=== PATIENT | male | born 1950 | race Caucasian/White ===

== ENCOUNTER 2022-10-23 18:59 | Inpatient (IN) | payer OTHER ==
[~2022-10-23] VITALS: Ht 162.6 cm; Wt 77.1 kg
[2022-10-23 19:03] VITALS: BP 120/99
--- NOTE | 2022-10-23 19:05 | NUR ---
PT TO BED #2
--- NOTE | 2022-10-23 19:28 | NUR ---
Dr. Reyes examining patient.
[2022-10-23] MEDS ORDERED: cefTRIAXone 1,000 MG in DEXT 5% MINI-BAG PLUS 50 ML IV ONE (19:35)
--- NOTE | 2022-10-23 19:45 | NUR ---
Patient resting in bed, A/Ox4, chest rise and fall symmetrical, no c/o pain or s/s of distress, seizure pads in place.
[2022-10-23] MEDS ORDERED: AMLO10TA PO (19:57)
[2022-10-23] MEDS ORDERED: DONE10TA10 PO (19:57)
[2022-10-23] MEDS ORDERED: LOSA25TA32 PO (19:57)
[2022-10-23] MEDS ORDERED: PENT400T67 PO (19:59)
[2022-10-23] MEDS ORDERED: GABA100C PO (19:59)
[2022-10-23] MEDS ORDERED: [UNRECOGNIZED DRUG - CODE] PO (19:59)
[2022-10-23] MEDS ORDERED: cefTRIAXone 1,000 MG VIAL ONE (20:26)
--- NOTE | 2022-10-23 20:34 | NUR ---
X-Ray at bedside.
[2022-10-23 20:38] LABS: BASOPHILS % (AUTO) 0.5 % (0.0-2.0); EOSINOPHILS # (AUTO) 0.1 K/uL (0-0.4); EOSINOPHILS % (AUTO) 1.8 % (0.0-4.0); HEMATOCRIT 40.8 % (36-52); HEMOGLOBIN 13.6 g/dL (12.0-18.0); LYMPHOCYTES # (AUTO) 1.7 K/uL (2.0-11.5); LYMPHOCYTES % (AUTO) 22.1 % (20.5-51.1); MEAN CORPUSCULAR HEMOGLOBIN 27 pg (27-31); MEAN CORPUSCULAR HGB CONC 33 g/dL (33-37); MEAN CORPUSCULAR VOLUME 81.6 fL (80-94); MONOCYTES # (AUTO) 0.8 K/uL (0.8-1.0); NEUTROPHILS % (AUTO) 65.6 % (42.2-75.2); PLATELET COUNT (AUTO) 294 K/uL (140-450); RED BLOOD CELL COUNT(AUTO) 5.01 MIL/uL (4.20-6.10); RED CELL DISTRIBUTION WIDTH 15.2 % (11.6-13.7); WHITE BLOOD COUNT (AUTO) 7.7 K/uL (4.8-10.8)
[2022-10-23] MEDS ORDERED: diphenhydrAMINE 50 MG/ML VIAL IVP ONE (20:55)
[2022-10-23 21:00] LABS: APPEARANCE,URINE CLEAR (CLEAR); BILIRUBIN,URINE NEGATIVE (NEGATIVE); BLOOD, URINE TRACE-I (NEGATIVE); COLOR,URINE YELLOW (YELLOW); LEUKOCYTE ESTERASE ,URINE NEGATIVE (NEGATIVE); NITRITE, URINE NEGATIVE (NEGATIVE); UGLUCOSE NEGATIVE (NEGATIVE)
[2022-10-23 21:06] LABS: ALBUMIN 3.7 g/dL (3.4-5.0); ANION GAP 11.8 (8-16); ASPARTATE AMINOTRANSFERASE 20 U/L (15-37); CARBON DIOXIDE 30.4 mmol/L (21-32); CHLORIDE 102 mmol/L (98-107); CREATININE 0.7 mg/dL (0.6-1.3); GLUCOSE 104 mg/dL (74-106); POTASSIUM 4.2 mmol/L (3.5-5.1); SODIUM SERUM 140 mmol/L (136-145); TOTAL BILIRUBIN 0.6 mg/dL (0.0-1.0); UREA NITROGEN, BLOOD 16 mg/dL (7-18)
[2022-10-23 21:09] LABS: RBC,URINE 0-5 /HPF (0-5); WBC,URINE NONE SEEN /HPF (0-5)
[2022-10-23] MEDS ORDERED: ACETAMINOPHEN 325 MG TAB PO PRN (21:25)
[2022-10-23] MEDS ORDERED: ONDANSETRON 4 MG/2 ML VIAL IVP PRN (21:25)
[2022-10-23] MEDS ORDERED: HYDROcodone/APAP 5/325 MG 1 TAB TAB PO PRN (21:25)
--- NOTE | 2022-10-23 21:40 | NUR ---
Patient resting in bed, A/Ox4, chest rise and fall symmetrical, no c/o pain or s/s of distress, seizure pads in place.
--- NOTE | 2022-10-23 22:06 | NUR ---
Patient will be admitted to care of telemetry nurse Malinda. Admited to telemetry. Will go to room 107A. Belongings list completed. Report to telemetry nurse Malinda. Telemetry nurse Malinda verbalized understanding of report, no further questions from telemetry nurse Malinda. Telemetry nurse Malinda verbally informed salazar Calvillo requests patient call admitting doctor for a medication to keep patient calm so salazar Calvillo can perform head CT. Telemetry nurse Malinda verbalized understanding and stated she "will call doctor for medication to calm patient down." cost recovery technician David verbally informed that patient is going to Tele rm 107A and telemetry nurse Petty stated she "will call doctor for medication to calm patient down." Salazar Calvillo verbalized understanding, no further questions.
--- NOTE | 2022-10-23 22:30 | NUR ---
PT WAS ADMITTED TO [facility] FROM ER [facility] WITH DIAGNOSIS SUBACUTE STROKE. PT IS CONFUSED ACCOMPANIED WITH HER . PT IS ON ROOM AIR AND ON REGULAR DIET. PT HAS IV ON LEFT AC GAUGE 20 SALINE LOCK. PT SKIN IS INTACT. PT AND HIS WAS ORIENTED TO HOSPITAL/ROOM, BED BUTTONS AND CALL LIGHT. ALL SAFETY MEASURES IMPLEMENTED. BED IN LOW POSITION, BED WHEELS ON LOCK AND CALL LIGHT WITHIN REACH.
--- NOTE | 2022-10-23 22:39 | NUR ---
NOTIFIED DR. BLAIR REGARDING PT NEEDS TO GO TO CT SCAN BUT PT IS AGITATED. PT WAS GIVEN BENADRYL BUT IT WAS NOT EFFECTIVE TO THE PT. DR. BLAIR ORDER HALOPERIDOL 5MG X1 IM. ORDER WAS MADE AND CARRIED OUT.
[2022-10-23] MEDS ORDERED: HALOPERIDOL IM 5 MG/ML VIAL IM SCH (22:45)
--- NOTE | 2022-10-23 23:47 | NUR ---
PT WAS GIVEN HALOPERIDOL 5MG IM BEFORE GOING TO CT SCAN. ALL SAFETY MEASURES IMPLEMENTED. BED IN LOW POSITION, BED WHEELS ON LOCK AND CALL LIGHT WITHIN REACH.
[2022-10-24] VITALS: BP 133/66
--- NOTE | 2022-10-24 00:20 | NUR ---
PT CAME BACK FROM THE CT SCAN. NO S/S OF RESPIRATORY DISTRESS NOTED. DENIES PAIN AT THIS TIME. ALL SAFETY MEASURES IMPLEMENTED. BED IN LOW POSITION, BED WHEELS ON LOCK AND CALL LIGHT WITHIN REACH.
--- NOTE | 2022-10-24 02:00 | NUR ---
CLEANED THE PT. CHANGED CHUCKS AND FIX GOWN TIE. NO S/S OF RESPIRATORY DISTRESS NOTED. PT DENIES PAIN. ALL SAFETY MEASURES IMPLEMENTED. BED IN LOW POSITION, BED WHEELS ON LOCK AND CALL LIGHT WITHIN REACH.
--- NOTE | 2022-10-24 04:00 | NUR ---
PT'S REFUSED TO GET PT'S VS DUE TO PT ASLEEP. WILL CHECKED THE VS WHEN THE PT'S AWAKE. CHEST RISE AND FALL SYMMETRICALLY NOTED. RESPIRATION IS EVEN AND UNLABORED. ALL SAFETY MEASURES IMPLEMENTED. BED IN LOW POSITION, BED WHEELS ON LOCK AND CALL LIGHT WITHIN REACH.
--- NOTE | 2022-10-24 07:31 | NUR ---
GOT REPORT FROM THE NIGHT NURSE, PT SLEEPING WITH HIS AT BED WITH DR PERMISSION.[id number]
[2022-10-24 07:39] LABS: BASOPHILS % (AUTO) 0.4 % (0.0-2.0); EOSINOPHILS # (AUTO) 0.2 K/uL (0-0.4); EOSINOPHILS % (AUTO) 2.2 % (0.0-4.0); HEMATOCRIT 38.4 % (36-52); HEMOGLOBIN 12.7 g/dL (12.0-18.0); LYMPHOCYTES # (AUTO) 2.4 K/uL (2.0-11.5); LYMPHOCYTES % (AUTO) 27.9 % (20.5-51.1); MEAN CORPUSCULAR HEMOGLOBIN 27 pg (27-31); MEAN CORPUSCULAR HGB CONC 33 g/dL (33-37); MEAN CORPUSCULAR VOLUME 81.9 fL (80-94); MONOCYTES # (AUTO) 0.9 K/uL (0.8-1.0); NEUTROPHILS # (AUTO) 4.9 K/uL (1.8-7.7); NEUTROPHILS % (AUTO) 58.5 % (42.2-75.2); PLATELET COUNT (AUTO) 283 K/uL (140-450); RED BLOOD CELL COUNT(AUTO) 4.68 MIL/uL (4.20-6.10); RED CELL DISTRIBUTION WIDTH 15.1 % (11.6-13.7); WHITE BLOOD COUNT (AUTO) 8.4 K/uL (4.8-10.8)
[2022-10-24 07:41] LABS: ALBUMIN 3.5 g/dL (3.4-5.0); ANION GAP 11.9 (8-16); ASPARTATE AMINOTRANSFERASE 29 U/L (15-37); CARBON DIOXIDE 28.9 mmol/L (21-32); CHLORIDE 103 mmol/L (98-107); CREATININE 0.7 mg/dL (0.6-1.3); GLUCOSE 90 mg/dL (74-106); POTASSIUM 3.8 mmol/L (3.5-5.1); SODIUM SERUM 140 mmol/L (136-145); TOTAL BILIRUBIN 0.5 mg/dL (0.0-1.0); UREA NITROGEN, BLOOD 15 mg/dL (7-18)
[2022-10-24 08:00] VITALS: BP 114/86
[2022-10-24] MEDS: DOCUSATE SODIUM 100 MG GELCAP PO SCH (08:20)
[2022-10-24] MEDS: amLODIPine 5 MG TAB PO SCH (08:20)
[2022-10-24] MEDS: HALOPERIDOL 1 MG TAB PO SCH (08:20)
[2022-10-24] MEDS: ENOXAPARIN 40 MG/0.4 ML SYR SUBQ SCH (08:21)
--- NOTE | 2022-10-24 08:51 | NUR ---
PT REFUSED TO TAKE ATORVASTATIN AND MONTELUKAST, SAYING SHE TAKES THEM LATE AFTERNOON. SO HOLDING MED UNTIL THEN.[id number]
[2022-10-24] MEDS ORDERED: LOSARTAN 25 MG TAB PO SCH (09:00)
--- NOTE | 2022-10-24 09:07 | NUR ---
PATIENT HAS BEEN SCREENED AND CATEGORIZED MODERATE NUTRITION RISK. PATIENT WILL BE SEEN WITHIN 3-5 DAYS OF ADMISSION. REVIEWED BY VIJAYA SINCLAIR RD
[2022-10-24 12:00] VITALS: BP 96/54
[2022-10-24] MEDS ORDERED: HALOPERIDOL 1 MG TAB PO PRN (14:15)
[2022-10-24 16:20] VITALS: BP 94/50
--- NOTE | 2022-10-24 18:38 | NUR ---
PT WALKED AGAIN IN THE HALLWAY WITH THE . THE FIRST TIME WALKED WITH PT.FREDIS
--- NOTE | 2022-10-24 19:05 | NUR ---
RECEIVED REPORT FROM MORNING SHIFT NURSE. PT IS LYING THE BED WITH RELATIVE ON BEDSIDE, AND CONFUSED. PT IS ON ROOM AIR AND ON REGULAR DIET. PT HAS IV ON LEFT AC GAUGE 20, SALINE LOCK. PT SKIN IS INTACT. PT DENIES PAIN AND NO S/S OF RESPIRATORY DISTRESS NOTED. ALL SAFETY MEASURES IMPLEMENTED. BED IN LOW POSITION, BED WHEELS ON LOCK AND CALL LIGHT WITHIN REACH.
[2022-10-24 20:00] VITALS: BP 104/60
--- NOTE | 2022-10-24 20:04 | NUR ---
SCHEDULED AND PRESCRIBED MEDICATION WAS GIVEN TO PT PER MD ORDER. ALL SAFETY MEASURES IMPLEMENTED. BED IN LOW POSITION, BED WHEELS ON LOCK AND CALL LIGHT WITHIN REACH.
[2022-10-24] MEDS ORDERED: DONEPEZIL 10 MG TAB PO SCH (21:00)
--- NOTE | 2022-10-24 22:00 | NUR ---
PT WAS GIVEN WARM BLANKET. NO S/S OF RESPIRATORY DISTRESS NOTED. ALL SAFETY MEASURES IMPLEMENTED. BED IN LOW POSITION, BED WHEELS ON LOCK AND CALL LIGHT WITHIN REACH.
[2022-10-25] VITALS: BP 121/70
--- NOTE | 2022-10-25 | NUR ---
PT IS SLEEPING. CHEST RISE AND FALL SYMMETRICALLY NOTED. RESPIRATION IS EVEN AND UNLABORED. ALL SAFETY MEASURES IMPLEMENTED. BED IN LOW POSITION, BED WHEELS ON LOCK AND CALL LIGHT WITHIN REACH.
--- NOTE | 2022-10-25 02:00 | NUR ---
CHECKED PT STILL SLEEPING. CHEST RISE AND FALL SYMMETRICALLY NOTED. RESPIRATION IS EVEN AND UNLABORED. ALL SAFETY MEASURES IMPLEMENTED. BED IN LOW POSITION, BED WHEELS ON LOCK AND CALL LIGHT WITHIN REACH.
[2022-10-25 04:00] VITALS: BP 113/71
--- NOTE | 2022-10-25 04:00 | NUR ---
MORNING CARE WAS DONE TO PT. CHANGED GOWN, LINENS AND CHUCKS. PT DENIES PAIN. NO S/S OF RESPIRATORY DISTRESS NOTED. ALL SAFETY MEASURES IMPLEMENTED. BED IN LOW POSITION, BED WHEELS ON LOCK AND CALL LIGHT WITHIN REACH.
[2022-10-25 07:02] LABS: ALBUMIN 3.3 g/dL (3.4-5.0); ASPARTATE AMINOTRANSFERASE 19 U/L (15-37); CHLORIDE 103 mmol/L (98-107); CREATININE 0.8 mg/dL (0.6-1.3); GLUCOSE 91 mg/dL (74-106); MAGNESIUM 2.1 mg/dL (1.8-2.4); SODIUM SERUM 139 mmol/L (136-145); TOTAL BILIRUBIN 0.7 mg/dL (0.0-1.0); UREA NITROGEN, BLOOD 21 mg/dL (7-18)
[2022-10-25 07:18] LABS: BASOPHILS % (AUTO) 0.4 % (0.0-2.0); EOSINOPHILS # (AUTO) 0.2 K/uL (0-0.4); EOSINOPHILS % (AUTO) 2.7 % (0.0-4.0); HEMATOCRIT 38.7 % (36-52); HEMOGLOBIN 12.7 g/dL (12.0-18.0); LYMPHOCYTES # (AUTO) 2.4 K/uL (2.0-11.5); LYMPHOCYTES % (AUTO) 29.8 % (20.5-51.1); MEAN CORPUSCULAR HEMOGLOBIN 27 pg (27-31); MEAN CORPUSCULAR HGB CONC 33 g/dL (33-37); MEAN CORPUSCULAR VOLUME 83.2 fL (80-94); MONOCYTES # (AUTO) 0.9 K/uL (0.8-1.0); MONOCYTES % (AUTO) 11.3 % (1.7-9.3); NEUTROPHILS # (AUTO) 4.5 K/uL (1.8-7.7); NEUTROPHILS % (AUTO) 55.8 % (42.2-75.2); PLATELET COUNT (AUTO) 271 K/uL (140-450); RED BLOOD CELL COUNT(AUTO) 4.65 MIL/uL (4.20-6.10); WHITE BLOOD COUNT (AUTO) 8.1 K/uL (4.8-10.8)
--- NOTE | 2022-10-25 07:43 | NUR ---
GOT REPORT FROM THE NIGHT NURSE, PT SLEEPING NO SOB, AT BEDSIDE.[id number]
[2022-10-25 08:00] VITALS: BP 118/67
[2022-10-25] MEDS: DOCUSATE SODIUM 100 MG GELCAP PO SCH (08:40)
[2022-10-25] MEDS: amLODIPine 5 MG TAB PO SCH (08:40)
[2022-10-25] MEDS: HALOPERIDOL 1 MG TAB PO SCH (08:40)
[2022-10-25] MEDS: ENOXAPARIN 40 MG/0.4 ML SYR SUBQ SCH (08:41)
[2022-10-25] MEDS ORDERED: lamoTRIgine 25 MG TAB PO SCH (09:00)
[2022-10-25] MEDS ORDERED: LOSARTAN 25 MG TAB PO SCH (09:00)
[2022-10-25] MEDS ORDERED: ATORVASTATIN 20 MG TAB PO SCH (09:00)
[2022-10-25] MEDS ORDERED: ECOTRIN 81 MG TABEC PO SCH (09:00)
[2022-10-25 12:00] VITALS: BP 95/67
[2022-10-25] MEDS ORDERED: LAM25 PO (12:38)
[2022-10-25 12:45] VITALS: BP 95/61
--- NOTE | 2022-10-25 14:50 | NUR ---
PT AMBULATED TO W/C WITH ASSISTANCE FROM SPOUSE. NO C/O PAIN. NO GUARDING, GRIMACING OR SOB. NO ACUTE DISTRESS NOTED. [id number].
== END 2022-10-25 14:20 | disposition home or self-care (01) | DRG 101 ==
LOC: MED 18:59 → OBSVTOIN 21:32 → MTU 21:32
PROVIDERS: ADMIT Internal Medicine; ATTEND Internal Medicine
PROC: 4A00X4Z Measurement of Central Nervous Electrical Activity, External Approach (ICD-10-PCS; principal; 2022-10-25)
DX: R56.9 Unspecified convulsions (principal); I69.354 Hemiplegia and hemiparesis following cerebral infarction affecting left non-dominant side; K76.82 Hepatic encephalopathy; I10 Essential (primary) hypertension; I25.10 Atherosclerotic heart disease of native coronary artery without angina pectoris; Z20.822 Contact with and (suspected) exposure to COVID-19; G30.9 Alzheimer's disease, unspecified; F02.80 Dementia in other diseases classified elsewhere, unspecified severity, without behavioral disturbance, psychotic disturbance, mood disturbance, and anxiety
CPT/HCPCS: 36415; 70450; 71045; 80053; 81001; 82140; 83605; 83735; 83880; 84484; 85025; 87040; 87081; 87086; 93005; 95816; 96365; 96375; 97116; 97163-GP; 97530; 99285; J0696; J1200; J1630; J1650; Q0092

== ENCOUNTER 2022-11-27 22:55 | Emergency (ER) | payer OTHER ==
[~2022-11-27] VITALS: Ht 162.6 cm; Wt 67.1 kg
[~2022-11-27 22:55] MED LIST: AMLO10TA PO; DONE10TA10 PO; GABA100C PO; LAM25 PO; LOSA25TA32 PO; PENT400T67 PO; [UNRECOGNIZED DRUG - CODE] PO
[2022-11-27 23:07] VITALS: BP 131/78
--- NOTE | 2022-11-27 23:32 | NUR ---
Patient taken to bed 12.
--- NOTE | 2022-11-27 23:35 | NUR ---
urine sample collected and sent to lab.
[2022-11-27 23:41] LABS: APPEARANCE,URINE CLEAR (CLEAR); BILIRUBIN,URINE NEGATIVE (NEGATIVE); BLOOD, URINE 1+ (NEGATIVE); COLOR,URINE YELLOW (YELLOW); LEUKOCYTE ESTERASE ,URINE NEGATIVE (NEGATIVE); NITRITE, URINE NEGATIVE (NEGATIVE); UGLUCOSE NEGATIVE (NEGATIVE)
[2022-11-27] MEDS: NACL 0.9% 1,000 ML IV SCH (23:58)
[2022-11-28] LABS: BASOPHILS # (AUTO) 0.1 K/uL (0.00-0.22); BASOPHILS % (AUTO) 0.9 % (0.0-2.0); EOSINOPHILS # (AUTO) 0.3 K/uL (0-0.4); EOSINOPHILS % (AUTO) 3.4 % (0.0-4.0); HEMATOCRIT 40.9 % (36-52); HEMOGLOBIN 13.5 g/dL (12.0-18.0); LYMPHOCYTES # (AUTO) 1.9 K/uL (2.0-11.5); LYMPHOCYTES % (AUTO) 24.1 % (20.5-51.1); MEAN CORPUSCULAR HEMOGLOBIN 27 pg (27-31); MEAN CORPUSCULAR HGB CONC 33 g/dL (33-37); MONOCYTES # (AUTO) 0.9 K/uL (0.8-1.0); NEUTROPHILS # (AUTO) 4.8 K/uL (1.8-7.7); NEUTROPHILS % (AUTO) 60.6 % (42.2-75.2); PLATELET COUNT (AUTO) 305 K/uL (140-450); RED BLOOD CELL COUNT(AUTO) 4.99 MIL/uL (4.20-6.10); RED CELL DISTRIBUTION WIDTH 14.9 % (11.6-13.7)
[2022-11-28] LABS: WBC,URINE 0-5 /HPF (0-5)
[2022-11-28 00:26] LABS: ALBUMIN 3.9 g/dL (3.4-5.0); ANION GAP 10.6 (8-16); ASPARTATE AMINOTRANSFERASE 22 U/L (15-37); CARBON DIOXIDE 32.2 mmol/L (21-32); CHLORIDE 104 mmol/L (98-107); GLUCOSE 100 mg/dL (74-106); POTASSIUM 3.8 mmol/L (3.5-5.1); SODIUM SERUM 143 mmol/L (136-145); TOTAL BILIRUBIN 0.4 mg/dL (0.0-1.0); UREA NITROGEN, BLOOD 42 mg/dL (7-18)
--- NOTE | 2022-11-28 00:37 | NUR ---
pt to CT via edel
--- NOTE | 2022-11-28 00:51 | NUR ---
pt back from CT
[2022-11-28] MEDS ORDERED: ACET-10509 PO (02:02)
[2022-11-28] MEDS ORDERED: DOCU-299 PO (02:02)
[2022-11-28] MEDS ORDERED: NA P133N16 RC (02:02)
[2022-11-28] MEDS ORDERED: MIRABULK PO (02:02)
[2022-11-28] MEDS ORDERED: AMOX1TAB8 PO (02:02)
[2022-11-28] MEDS: AMOXIL/CLAVULANATE 875/125 MG 1 TAB PO ONE (02:06)
[2022-11-28 02:34] VITALS: BP 124/66
--- NOTE | 2022-11-28 02:34 | NUR ---
IV removed, catheter intact and site benign. Applied folded 4x4 gauze and tape to stop bleeding.
== END 2022-11-28 02:34 | disposition home or self-care (01) ==
LOC: MED 22:55
DX: K57.32 Diverticulitis of large intestine without perforation or abscess without bleeding (principal); K59.00 Constipation, unspecified; R82.81 Pyuria; I11.0 Hypertensive heart disease with heart failure; I50.9 Heart failure, unspecified; E11.9 Type 2 diabetes mellitus without complications; F03.90 Unspecified dementia, unspecified severity, without behavioral disturbance, psychotic disturbance, mood disturbance, and anxiety; Z79.899 Other long term (current) drug therapy; Z79.2 Long term (current) use of antibiotics
CPT/HCPCS: 36415; 74176; 80053; 81001; 83605; 85025; 87040; 87086; 96360; 99284; J7030

== ENCOUNTER 2024-02-27 16:10 | Outpatient (CLI) | payer OTHER ==
[~2024-02-27 16:10] MED LIST changes: +ACET-10509 PO; +AMOX1TAB8 PO; +DOCU-299 PO; +MIRABULK PO; +NA P133N16 RC
== END 2024-02-27 18:19 | disposition home or self-care (01) ==
LOC: MUS 16:10
PROVIDERS: ATTEND Internal Medicine
DX: I82.493 Acute embolism and thrombosis of other specified deep vein of lower extremity, bilateral (principal)
CPT/HCPCS: 93970; Q0092